=== PATIENT | male | born 1970 | race Caucasian/White ===

== ENCOUNTER 2023-01-21 06:12 | Day surgery (SDC) | payer BC ==
[2023-01-18 09:04] VITALS: BMI 34.4
[2023-01-21] MEDS ORDERED: DEXAMETHASONE SOD PHOSPHATE 4 MG/1 ML VIAL ONE ×2 (07:05→08:41)
[2023-01-21] MEDS ORDERED: ROPIVACAINE HCL 0.5% 30ML VIAL ONE (07:05)
[2023-01-21] MEDS ORDERED: MIDAZOLAM HCL 2 MG/2 ML SINGLE DOSE VIAL ONE (07:05)
[2023-01-21] MEDS ORDERED: ONDANSETRON 4 MG/2 ML VIAL ONE ×2 (07:05→08:41)
[2023-01-21] MEDS ORDERED: BUPIVACAINE HCL/EPINEPHRINE/PF 30 ML VIAL IJ ONE (07:07)
[2023-01-21] MEDS ORDERED: EPINEPHrine 1:1,000 1,000 MCG/ML ML ONE (07:07)
[2023-01-21] MEDS ORDERED: ceFAZolin SODIUM 1 GM VIAL ONE (07:43)
[2023-01-21] MEDS ORDERED: SUCCINYLCHOLINE CHLORIDE 200 MG/10 ML SYRINGE ONE (07:44)
[2023-01-21] MEDS ORDERED: PROPOFOL 60 ML ONE (07:44)
[2023-01-21 09:38] VITALS: TEMP 97.3
[2023-01-21 09:57] VITALS: BP 129/64; PULSE 74; RESP 16
[2023-01-21] MEDS ORDERED: oxyCODONE HCL 5 MG TABLET PO PRN ×2 (13:19)
[2023-01-21] MEDS ORDERED: ONDANSETRON 4 MG/2 ML VIAL IVPUSH PRN (13:19)
[2023-01-21] MEDS ORDERED: LACTATED RINGERS SOLUTION 1,000 ML IV SCH (13:30)
== END 2023-01-21 10:14 | disposition home or self-care (01) ==
LOC: FASU 06:12
PROVIDERS: ATTEND Orthopaedic Surgery
PROC: 0LQ24ZZ Repair Left Shoulder Tendon, Percutaneous Endoscopic Approach (ICD-10-PCS; 2023-01-21)
PROC: 0RQK4ZZ Repair Left Shoulder Joint, Percutaneous Endoscopic Approach (ICD-10-PCS; 2023-01-21)
PROC: 0RNK4ZZ Release Left Shoulder Joint, Percutaneous Endoscopic Approach (ICD-10-PCS; principal; 2023-01-21 08:11)
DX: M75.02 Adhesive capsulitis of left shoulder (principal); M75.52 Bursitis of left shoulder; S43.432A Superior glenoid labrum lesion of left shoulder, initial encounter; X58.XXXA Exposure to other specified factors, initial encounter; Y93.9 Activity, unspecified
CPT/HCPCS: 94760